=== PATIENT | female | born 1940 | race African-American/Black ===

== ENCOUNTER 2017-02-18 07:51 | Inpatient (IN) ==
[2017-02-18] MEDS ORDERED: HEPARIN 5,000 UNIT/1 ML VIAL ONE (08:27)
[2017-02-18] MEDS ORDERED: TISSUE ADHESIVE 1 EACH APPLICATOR TOP ONE (08:27)
--- NOTE | 2017-02-18 08:40 | History and Physical Update ---
History and Physical Update - History and Physical H&P was reviewed, the patient examined and there: are no changes in the patients condition since last H&P was completed.
[2017-02-18] MEDS ORDERED: ceFAZolin 1,000 MG VIAL ONE (08:48)
[2017-02-18] MEDS ORDERED: SODIUM CHLORIDE 0.9% 100 ML IV ONE (08:48)
[2017-02-18] MEDS ORDERED: LACTATED RINGERS 1,000 ML IV SCH (09:00)
[2017-02-18] MEDS ORDERED: GLYCOPYRROLATE 0.4 MG/2 ML VIAL ONE (09:15)
[2017-02-18] MEDS ORDERED: PROPOFOL 200 MG/20 ML VIAL IV ONE (09:15)
[2017-02-18] MEDS ORDERED: KETOROLAC 30 MG/1 ML VIAL ONE (09:15)
[2017-02-18] MEDS ORDERED: PROCAINAMIDE 1000 MG/2 ML ONE (09:15)
[2017-02-18] MEDS ORDERED: ETOMIDATE 20 MG/10 ML VIAL IV ONE (09:15)
[2017-02-18] MEDS ORDERED: HEPARIN 1,000 UNIT/1 ML VIAL ONE (09:15)
[2017-02-18] MEDS ORDERED: NEOSTIGMINE 10 MG/10 ML VIAL ONE (09:15)
[2017-02-18] MEDS ORDERED: DEXAMETHASONE 10 MG/1 ML VIAL ONE (09:15)
[2017-02-18] MEDS ORDERED: LIDOCAINE 1% 5 ML VIAL ONE (09:15)
[2017-02-18] MEDS ORDERED: PHENYLEPHRINE 1 MG/10 ML SYRINGE IV ONE (09:15)
[2017-02-18] MEDS ORDERED: ONDANSETRON 4 MG/2 ML VIAL ONE (09:15)
[2017-02-18] MEDS ORDERED: ROCURONIUM 100 MG/10 ML VIAL IV ONE (09:15)
[2017-02-18] MEDS ORDERED: PROMETHAZINE 25 MG/1 ML VIAL IM PRN (11:16)
[2017-02-18] MEDS ORDERED: GLUCAGON 1 MG VIAL IM PRN (11:16)
[2017-02-18] MEDS ORDERED: HYDROmorphone 2 MG/1 ML VIAL IV PRN ×2 (11:16)
[2017-02-18] MEDS ORDERED: DEXTROSE 50% 25 GM/50 ML VIAL IV PRN (11:16)
[2017-02-18] MEDS ORDERED: DOPamine 800 MG/250 ML PREMIX IV PRN (11:16)
[2017-02-18] MEDS ORDERED: NALOXONE 0.4 MG/ML VIAL IV PRN (11:16)
[2017-02-18] MEDS ORDERED: oxyCODONE/ACETAMINOPHEN 5-325 MG TABLET PO PRN (11:16)
[2017-02-18] MEDS ORDERED: ONDANSETRON 4 MG/2 ML VIAL IV PRN (11:16)
--- NOTE | 2017-02-18 11:16 | Operative Note ---
Date of procedure: 02/18/17 Procedure: Dr. Fowler operative report any Maria Guadalupe. 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 Lerma is a 77-year-old woman has been found to have a very high-grade ulcerated plaque involving the right internal carotid artery I have offered and recommended a right carotid endarterectomy I have explained the alternatives risks and complications which she understands and accepts Description of the procedure: After the induction of general endotracheal anesthesia the patient was placed in supine position neck modestly extended and turned to the left right neck is prepped with ChloraPrep and draped in usual fashion skin incision is made in a crease below the angle of the mandible and carried into the subplatysmal space dissection is carried out along the anterior border of the sternocleidomastoid muscle the internal jugular vein is identified the anterior facial vein was ligated hemoclipped and divided the common carotid artery is identified and controlled with a maxi vessel loop and the patient received 5000 units of intravenous heparin at this time. I then dissected along the common carotid artery past the diseased bifurcation separately controlling the internal and external carotid arteries with small vessel loops with adequate anticoagulation Vesseloops were brought up to control flow a longitudinal arteriotomy is made from the common carotid through the diseased bifurcation into the more normal distal internal carotid artery. I note that there is a calcified ulcerated highly stenotic plaque just distal to the origin of the internal carotid artery and does extend a bit upward but I am able to control above this plaque is removed I then placed an in-line Gonzalez- [place] shunt into the internal carotid artery which is backflush noting fairly low back pressure. He is then placed into the common carotid to reestablish flow. Standard endarterectomy was carried out removing the diseased intima media from the bifurcation this is done under loupe magnification and all loose flaps of medial or removed. The endarterectomized segment flush feathered out nicely on both the internal and external carotid arteries. The endarterectomized segment was flushed again with heparinized saline bovine pericardial patch is used to close the arteriotomy with a 5-0 Prolene suture shunt was removed and appropriate time backflushing internal and external carotid arteries and then flushing endarterectomized segment again with heparinized saline. Flow was initiated from the common carotid into the external and then restored into the internal carotid artery. Small bleeding site on the external carotid arteries controlled with a 5-0 Prolene suture. Flow is checked with the Doppler in all 3 vessels that is quite good heparin was partially reversed with 25 mg of protamine sulfate hemostasis was rechecked flow is checked again in the vessels that is good neck is irrigated with vancomycin is closed over quarter. Quarter inch Romi drain with a running 2- 0 Monocryl skin clips on the scan blood loss is estimated at 75 cc sponge needle and aspirate counts are correct and the patient taken to the recovery room in stable condition Surgeon / Physician: Dave Fowler Discharge Plan - Discharge Medications No Action Aspirin EC Tab 81 mg PO DAILY amLODIPine [Norvasc] 5 mg PO DAILY Rosuvastatin [Crestor] 20 mg PO DAILY Potassium Chloride 20 meq PO BID Cilostazol [Pletal] 50 mg PO BID Carvedilol [Coreg] 3.125 mg PO BID Valsartan/Hydrochlorothiazide [Valsartan-Hctz 160-12.5 mg Tab] 1 each PO DAILY - Follow Up or Referral - Forms/Instructions
[2017-02-18] MEDS ORDERED: ASPIRIN EC 81 MG TABLET PO SCH (11:30)
--- NOTE | 2017-02-18 11:38 | Anesthesia Post-Op ---
Anesthesia Post OP - Post Ansesthetic Evaluation Patient seen in post op: Yes Resp: within normal limits CV: within normal limits Mental: within normal limits Temp: within normal limits [id number]: within normal limits Nausea and Vomiting: within normal limits Pain: within normal limits
[2017-02-18] MEDS ORDERED: VANCOMYCIN 500 MG VIAL ONE (11:39)
[2017-02-18] MEDS ORDERED: PROTAMINE SULFATE 50 MG/5 ML VIAL IV ONE (11:41)
[2017-02-18] MEDS ORDERED: fentaNYL 100 MCG/2 ML VIAL ONE ×2 (11:41→13:33)
[2017-02-18] MEDS ORDERED: MIDAZOLAM 2 MG/2 ML VIAL ONE ×2 (11:41→13:34)
[2017-02-18] MEDS: LACTATED RINGERS 1,000 ML IV SCH ×2 (12:25→20:01)
[2017-02-18] MEDS: CLOPIDOGREL 75 MG TABLET PO SCH (12:45)
[2017-02-18] MEDS: oxyCODONE/ACETAMINOPHEN 5-325 MG TABLET PO PRN (13:03)
--- NOTE | 2017-02-18 13:18 | Event Note ---
Ms. Lerma is awake alert oriented neurologically intact good vital signs no sign of hematoma or swelling in the neck. Tongue midline good left hand managing member
[2017-02-18] MEDS ORDERED: KETAMINE 500 MG/10 ML VIAL ONE (13:33)
[2017-02-18] MEDS: ASPIRIN EC 81 MG TABLET PO SCH (13:45)
[2017-02-18] MEDS: CARVEDILOL 3.125 MG TABLET PO SCH (21:29)
[2017-02-18] MEDS: CILOSTAZOL 50 MG TABLET PO SCH (22:30)
[2017-02-18] MEDS: POTASSIUM CHLORIDE 20 MEQ PACK PO SCH (22:30)
[2017-02-19] MEDS: oxyCODONE/ACETAMINOPHEN 5-325 MG TABLET PO PRN ×2 (02:24→11:05)
--- NOTE | 2017-02-19 08:18 | Event Note ---
Mrs. Lerma is awake alert oriented doing well neurologically intact neck looks good drain is pulled vital signs are good. We will move her upstairs today but there is very good chance she can go home this afternoon
[2017-02-19] MEDS ORDERED: ROSUVASTATIN 20 MG TABLET PO SCH (09:00)
[2017-02-19] MEDS ORDERED: amLODIPine 5 MG TABLET PO SCH (09:00)
[2017-02-19] MEDS ORDERED: VALSARTAN/HCTZ 160-12.5 MG TABLET PO SCH (09:00)
[2017-02-19] MEDS: POTASSIUM CHLORIDE 20 MEQ PACK PO SCH (09:26)
[2017-02-19] MEDS: CILOSTAZOL 50 MG TABLET PO SCH (09:26)
[2017-02-19] MEDS: ASPIRIN EC 81 MG TABLET PO SCH (09:26)
[2017-02-19] MEDS: CLOPIDOGREL 75 MG TABLET PO SCH (09:28)
[2017-02-19] MEDS: CARVEDILOL 3.125 MG TABLET PO SCH (09:42)
--- NOTE | 2017-02-19 12:38 | Discharge Summary ---
Hospital Course - Hospital Course Hospital Course: Hanh Lerma was admitted with a high-grade stenosis of the right internal carotid artery and has undergone right carotid endarterectomy yesterday. She is awake alert fully oriented tolerating food and up in the room without difficulty. We do note her blood pressure in the right arm is running a bit low since transfer. My thoughts are that if she is able to ambulate in bell easily and is comfortable she can be discharged home this evening we may hold amlodipine and valsartan hydrochlorothiazide until we see that her blood pressure is staying at a more reasonable level. I discussed with her and her children her wound care and exercise expected recovery and plan for follow-up for staple removal next week they understand Specialty Discharge - Follow Up or Referrals Follow up with: Dave Fowler MD [Physician] - 02/24/17 1:15 pm (follow up appointment with Dr. Fowler TiffaniFebruary 24 at 1:15 PM) Discharge Plan - Discharge Data Disposition: Disch To Home/Self Care Condition at Discharge: Stable Discharge Diet: advance to your usual diet Activity: resume usual activities as tolerated Hygiene: may shower Weight Bearing at Discharge: full weight bearing Driving: not until seen by doctor Contact your physician if you experience:: fever over 101, Nausea/Vomiting - Discharge Medications New Clopidogrel [Plavix] 75 mg PO DAILY #100 tablet oxyCODONE/ACETAMINOPHEN 5-325 [Percocet 5-325] 1 tablet PO Q6H PRN #20 tablet PRN Reason: Pain Mild To Moderate (1-7) Continue Aspirin EC Tab 81 mg PO DAILY Rosuvastatin [Crestor] 20 mg PO DAILY Potassium Chloride 20 meq PO BID Cilostazol [Pletal] 50 mg PO BID Carvedilol [Coreg] 3.125 mg PO BID Discontinued amLODIPine [Norvasc] 5 mg PO DAILY Valsartan/Hydrochlorothiazide [Valsartan-Hctz 160-12.5 mg Tab] 1 each PO DAILY - Follow Up or Referral Follow Up: Dave Fowler MD [Physician] - 02/24/17 1:15 pm (follow up appointment with Dr. Malcolm Nixon, February 24 at 1:15 PM) - Forms/Instructions Exam - Constitutional Vitals: Period Temp Pulse Resp BP Sys/Quarles Pulse Ox Last 24 Hr 97.4 F-98.2 F 49-79 13-20 88-143/41-91 97-100 Discharge Results Procedures and tests throughout hospitalization: Pending Orders 02/18/17 12:30 MRSA Surveillence, Inf Control Routine Labs on day of discharge: Preliminary micro results at discharge 02/18/17 12:30 MRSA Surveillance Culture - Preliminary Nares - Both Nares (Mrsa screen) No MRSA isolated. DS: Provider Date of admission: 02/18/17 07:51 Primary care physician: . No PCP Attending physician on admission: Dave Fowler MD Consults: 02/18/17 12:52 Consult to Dietitian [CONS] Routine Reason for Dietitian: Dietary Consult Consult Comment: recent unintended weight loss 02/18/17 12:56 Consult to Pastoral Services [CONS] Routine Comment: Pastoral Screen: Request Tank Builder Supervisor Visit Pastoral Screen Source of Request: Patient Discharging clinician: Dave Fowler MD
[2017-02-19 14:57] VITALS: BP 105/55
== END 2017-02-19 14:45 | disposition home or self-care (01) | DRG 39 ==
LOC: N.SDSINP 07:51 → N.ICU 10:36 → N.3E 02-19 12:12
PROVIDERS: ADMIT Surgery; ATTEND Surgery

== ENCOUNTER 2018-05-23 11:22 | Inpatient (IN) ==
[2018-05-23] MEDS ORDERED: ASPIRIN 325 MG TABLET PO STA (11:57)
[2018-05-23 12:18] LABS: Basophils % 0.6 % (0.0-0.8); Eosinophils # 0.2 10*3/uL (0.0-0.87); Eosinophils % 2.9 % (0.00-10.9); Hematocrit 31.9 VOL% (35.7-47.0); Hemoglobin 10.6 GM/DL (12.0-16.0); Immature Granulocytes % 0.5 %; Immature Granulocytes Absolute 0.03 #; Lymphocytes # 1.6 10*3/uL (1.4-4.0); Lymphocytes % 24.6 % (21.3-54.2); Mean Corpuscular HGB Conc 33.2 GM/DL (32-36); Mean Corpuscular Hemoglobin 31 PG (27-34); Mean Corpuscular Volume 94.1 FL (87-102); Monocytes # 0.7 10*3/uL (0.11-0.8); Monocytes % 10.2 % (1.7-12.7); Neutrophils % 61.2 % (38.7-73.9); Platelet Count 351 T/CUMM (130-400); Red Blood Count 3.39 MC/CUMM (3.8-5.5); Red Cell Distribution Width 12.9 % (9.3-17.3); White Blood Count 6.6 T/CUMM (4-12)
[2018-05-23 12:27] LABS: INR 1.1; PT Patient Result 11.6 SECS; Partial Thromboplastin Time 28.2 SECS (0-40)
[2018-05-23 12:51] LABS: Albumin 3.3 G/DL (3.4-5.0); Bilirubin,Total 0.4 MG/DL (0.2-1.0); Calcium 9.7 MG/DL (8.5-10.1)
[2018-05-23 12:52] LABS: Potassium 2.8 MMOL/L (3.5-5.1); Troponin I Only < 0.015 NG/ML (0.00-0.045)
[2018-05-23] MEDS ORDERED: POTASSIUM BICARB EFFERVESCENT 25 MEQ TABLET PO ONE (13:14)
[2018-05-23] MEDS ORDERED: ONDANSETRON 4 MG/2 ML VIAL IV PRN (14:07)
[2018-05-23] MEDS ORDERED: MAGNESIUM SULF RIDER 2 GM in PREMIX 1 EACH IV PRN ×2 (14:07→14:17)
[2018-05-23] MEDS ORDERED: MAGNESIUM SULF RIDER 4 GM in PREMIX 1 EACH IV PRN ×2 (14:07→14:17)
[2018-05-23] MEDS ORDERED: traZODone 50 MG TABLET PO PRN (14:07)
[2018-05-23] MEDS ORDERED: diphenhydrAMINE CAP 25 MG CAPSULE PO PRN (14:07)
[2018-05-23] MEDS ORDERED: ACETAMINOPHEN 325 MG TABLET PO PRN (14:07)
[2018-05-23] MEDS ORDERED: POTASSIUM CHLORIDE RIDER 10 MEQ in PREMIX 1 EACH IV PRN (14:17)
[2018-05-23 14:40] LABS: Risk Ratio 2.49; Thyroid Stimulating Hormone 0.913 uIU/ml (0.358-3.74); VLDL CHOLESTEROL 19.6 MG/DL
[2018-05-23] MEDS: ENOXAPARIN 80 MG/0.8 ML SYRINGE SUBCUT SCH (15:00)
[2018-05-23] MEDS: SODIUM CHLORIDE 0.45% 1,000 ML IV SCH (16:28)
[2018-05-23] MEDS: POTASSIUM CHLORIDE 20 MEQ TABLET PO SCH ×2 (17:34→21:23)
[2018-05-23] MEDS: DOCUSATE SODIUM 100 MG CAPSULE PO SCH (21:23)
[2018-05-23] MEDS: ROSUVASTATIN 20 MG TABLET PO SCH (21:23)
[2018-05-23] MEDS: CARVEDILOL 3.125 MG TABLET PO SCH (21:23)
[2018-05-23] MEDS: CILOSTAZOL 50 MG TABLET PO SCH (21:23)
[2018-05-24] MEDS: POTASSIUM CHLORIDE 20 MEQ TABLET PO SCH ×2 (01:34→04:53)
[2018-05-24] MEDS: ENOXAPARIN 80 MG/0.8 ML SYRINGE SUBCUT SCH ×2 (01:55→15:02)
[2018-05-24 04:55] LABS: Basophils % 0.8 % (0.0-0.8); Eosinophils # 0.2 10*3/uL (0.0-0.87); Eosinophils % 3.7 % (0.00-10.9); Hematocrit 33.7 VOL% (35.7-47.0); Hemoglobin 10.8 GM/DL (12.0-16.0); Immature Granulocytes % 0.4 %; Immature Granulocytes Absolute 0.02 #; Lymphocytes # 1.5 10*3/uL (1.4-4.0); Lymphocytes % 29.6 % (21.3-54.2); Mean Corpuscular Hemoglobin 30 PG (27-34); Mean Corpuscular Volume 93.4 FL (87-102); Mean Platelet Volume 10.3 FL (9.6-12.0); Monocytes # 0.5 10*3/uL (0.11-0.8); Monocytes % 10.4 % (1.7-12.7); Neutrophils # 2.9 10*3/uL (1.4-7.4); Neutrophils % 55.1 % (38.7-73.9); Platelet Count 377 T/CUMM (130-400); Red Blood Count 3.61 MC/CUMM (3.8-5.5); White Blood Count 5.2 T/CUMM (4-12)
[2018-05-24 05:12] LABS: Albumin 3.1 G/DL (3.4-5.0); Bilirubin,Total 0.6 MG/DL (0.2-1.0); Calcium 8.9 MG/DL (8.5-10.1); Osmolality,Calculated 289.6 MOS/KG (273-304); Potassium 3.5 MMOL/L (3.5-5.1); Total Protein 7.2 G/DL (6.4-8.3)
[2018-05-24] MEDS ORDERED: VALSARTAN 80 MG TABLET PO SCH (09:00)
[2018-05-24] MEDS: amLODIPine 5 MG TABLET PO SCH (09:09)
[2018-05-24] MEDS: ASPIRIN EC 81 MG TABLET PO SCH (09:09)
[2018-05-24] MEDS: CARVEDILOL 3.125 MG TABLET PO SCH (09:10)
[2018-05-24] MEDS: CILOSTAZOL 50 MG TABLET PO SCH (09:10)
[2018-05-24] MEDS: DOCUSATE SODIUM 100 MG CAPSULE PO SCH ×2 (09:10→20:50)
[2018-05-24] MEDS: PANTOPRAZOLE 40 MG TABLET PO SCH (09:10)
[2018-05-24] MEDS: SODIUM CHLORIDE 0.45% 1,000 ML IV SCH (11:38)
[2018-05-24] MEDS: ROSUVASTATIN 20 MG TABLET PO SCH (20:50)
[2018-05-25 05:26] LABS: Basophils % 0.5 % (0.0-0.8); Eosinophils # 0.1 10*3/uL (0.0-0.87); Eosinophils % 3.3 % (0.00-10.9); Hemoglobin 9.9 GM/DL (12.0-16.0); Immature Granulocytes % 0.5 %; Immature Granulocytes Absolute 0.02 #; Lymphocytes # 1.1 10*3/uL (1.4-4.0); Lymphocytes % 25.1 % (21.3-54.2); Mean Corpuscular HGB Conc 31.9 GM/DL (32-36); Mean Corpuscular Hemoglobin 30 PG (27-34); Mean Corpuscular Volume 94.2 FL (87-102); Mean Platelet Volume 10.4 FL (9.6-12.0); Monocytes # 0.4 10*3/uL (0.11-0.8); Monocytes % 10.3 % (1.7-12.7); Neutrophils # 2.5 10*3/uL (1.4-7.4); Neutrophils % 60.3 % (38.7-73.9); Platelet Count 322 T/CUMM (130-400); Red Blood Count 3.29 MC/CUMM (3.8-5.5); White Blood Count 4.2 T/CUMM (4-12)
[2018-05-25 05:49] LABS: Albumin 2.6 G/DL (3.4-5.0); Bilirubin,Total 0.4 MG/DL (0.2-1.0); Potassium 3.3 MMOL/L (3.5-5.1); Total Protein 6.4 G/DL (6.4-8.3)
[2018-05-25] MEDS ORDERED: POTASSIUM CHLORIDE 20 MEQ TABLET PO PRN (06:22)
[2018-05-25] MEDS: POTASSIUM CHLORIDE 20 MEQ TABLET PO PRN ×3 (06:38→10:19)
[2018-05-25] MEDS: SODIUM CHLORIDE 0.45% 1,000 ML IV SCH (06:42)
[2018-05-25] MEDS: PANTOPRAZOLE 40 MG TABLET PO SCH (08:39)
[2018-05-25] MEDS: DOCUSATE SODIUM 100 MG CAPSULE PO SCH (08:39)
[2018-05-25] MEDS: amLODIPine 5 MG TABLET PO SCH (08:39)
[2018-05-25] MEDS: ASPIRIN EC 81 MG TABLET PO SCH (08:40)
[2018-05-25] MEDS ORDERED: OLMESARTAN 5 MG TABLET PO SCH (09:00)
[2018-05-25] MEDS ORDERED: ENOXAPARIN 40 MG/0.4 ML SYRINGE SUBCUT SCH (09:00)
[2018-05-25 12:09] VITALS: BP 129/63
== END 2018-05-25 14:15 | disposition home or self-care (01) | DRG 312 ==
LOC: N.ED 11:22 → N.EDINP 14:07 → SUATTDRO 14:07 → N.EDINP 15:40 → N.TELES 16:41
PROVIDERS: ADMIT Hospitalist; ATTEND Hospitalist

== ENCOUNTER 2020-08-10 17:04 | Inpatient (IN) ==
[2020-08-10] MEDS ORDERED: ACETAMINOPHEN 325 MG TABLET PO PRN (20:07)
[2020-08-10] MEDS ORDERED: ALUMINUM/MAGNES/SIMETH MAX STR 30 ML UDCUP PO PRN (20:07)
[2020-08-10] MEDS ORDERED: DEXTROSE 50% 25 GM/50 ML VIAL IV PRN (20:07)
[2020-08-10] MEDS ORDERED: ONDANSETRON 4 MG/2 ML VIAL IV PRN (20:07)
[2020-08-10] MEDS ORDERED: GLUCAGON 1 MG VIAL IM PRN (20:07)
[2020-08-10] MEDS ORDERED: KETOROLAC 15 MG/1 ML VIAL IV PRN (20:19)
[2020-08-10 21:00] LABS: Basophils % 0.2 % (0.0-0.8); Eosinophils % 0.1 % (0.00-10.9); Hematocrit 32.9 VOL% (35.7-47.0); Hemoglobin 10.9 GM/DL (12.0-16.0); Immature Granulocytes % 0.9 %; Immature Granulocytes Absolute 0.16 #; Lymphocytes # 1.5 10*3/uL (1.4-4.0); Lymphocytes % 8.2 % (21.3-54.2); Mean Corpuscular HGB Conc 33.1 GM/DL (32-36); Mean Corpuscular Volume 93.2 FL (87-102); Mean Platelet Volume 10.6 FL (9.6-12.0); Monocytes % 6.5 % (1.7-12.7); Neutrophils % 84.1 % (38.7-73.9); Platelet Count 351 T/CUMM (130-400); Red Blood Count 3.53 MC/CUMM (3.8-5.5); White Blood Count 18.6 T/CUMM (4-12)
[2020-08-10 21:32] LABS: Albumin 2.9 G/DL (3.4-5.0); Bilirubin,Total 0.6 MG/DL (0.2-1.0); Calcium 8.8 MG/DL (8.5-10.1); Thyroid Stimulating Hormone 0.604 uIU/ml (0.358-3.74); Total Protein 6.4 G/DL (6.4-8.3)
[2020-08-10] MEDS: ENOXAPARIN 40 MG/0.4 ML SYRINGE SUBCUT SCH (21:47)
[2020-08-10] MEDS: ROSUVASTATIN 20 MG TABLET PO SCH (21:48)
[2020-08-10] MEDS: cefTRIAXone 1,000 MG in SYRINGE 1 EACH IV SCH (21:48)
[2020-08-10] MEDS: metroNIDAZOLE INJ 500 MG in PREMIX 1 EACH IV SCH (21:48)
[2020-08-10] MEDS: DOCUSATE SODIUM 100 MG CAPSULE PO SCH (21:48)
[2020-08-10] MEDS: carvediloL 3.125 MG TABLET PO SCH (21:48)
[2020-08-10] MEDS: DEXTROSE 5% NACL 0.45% 1,000 ML IV SCH (21:49)
[2020-08-10] MEDS ORDERED: POTASSIUM CHLORIDE 20 MEQ TABLET PO ONE (22:23)
[2020-08-10] MEDS ORDERED: POTASSIUM CHLORIDE 20 MEQ TABLET PO PRN (22:23)
[2020-08-10] MEDS ORDERED: MAGNESIUM SULF RIDER 2 GM in PREMIX 1 EACH IV PRN (22:26)
[2020-08-10] MEDS ORDERED: MAGNESIUM SULF RIDER 4 GM in PREMIX 1 EACH IV PRN (22:26)
[2020-08-10 22:35] LABS: Cancer Antigen 19-9 < 1.2 U/ML (0-37); Carcinoembryonic Antigen 1.6 NG/ML (0.0-5.0)
[2020-08-11 00:22] LABS: Bacteria,Urine Occasional /HPF (Few); Bilirubin,Urine Negative (Negative); Blood, Urine Small mg/dL (Negative); Glucose,Urine (UA) Negative (Negative); Ketones,Urine Negative (Negative); Mucus,Urine Occasional /LPF (Occasional); Nitrite,Urine Negative (Negative); Protein,Urine Negative; RBC,Urine 9 /HPF (0-4); Squamous Epithelial Cell,Urine Occasional /HPF (0-10); Urine Appearance Slightly Hazy (Clear); Urine Color Yellow (Yellow); Urine Specific Gravity 1.023 (1.001-1.035); Urine Urobilinogen < 2.0 EU/DL (0.2-1.0); WBC,Urine 5 /HPF (0-6)
[2020-08-11] MEDS: metroNIDAZOLE INJ 500 MG in PREMIX 1 EACH IV SCH ×3 (03:33→22:44)
[2020-08-11 05:49] LABS: Basophils % 0.2 % (0.0-0.8); Eosinophils # 0.1 10*3/uL (0.0-0.87); Eosinophils % 0.3 % (0.00-10.9); Hematocrit 33.5 VOL% (35.7-47.0); Hemoglobin 10.8 GM/DL (12.0-16.0); Immature Granulocytes % 0.6 %; Lymphocytes # 1.7 10*3/uL (1.4-4.0); Lymphocytes % 9.8 % (21.3-54.2); Mean Corpuscular HGB Conc 32.2 GM/DL (32-36); Mean Corpuscular Volume 95.4 FL (87-102); Mean Platelet Volume 10.6 FL (9.6-12.0); Monocytes % 7.2 % (1.7-12.7); Neutrophils % 81.9 % (38.7-73.9); Platelet Count 327 T/CUMM (130-400); Red Blood Count 3.51 MC/CUMM (3.8-5.5); Red Cell Distribution Width 14.4 % (9.3-17.3); White Blood Count 17.7 T/CUMM (4-12)
[2020-08-11 06:16] LABS: Albumin 2.6 G/DL (3.4-5.0); Bilirubin,Total 1.2 MG/DL (0.2-1.0); Calcium 8.7 MG/DL (8.5-10.1); Osmolality,Calculated 288.8 MOS/KG (273-304); Risk Ratio 1.82; Total Protein 6.3 G/DL (6.4-8.3); VLDL CHOLESTEROL 7.8 MG/DL
[2020-08-11] MEDS: carvediloL 3.125 MG TABLET PO SCH ×2 (08:45→21:21)
[2020-08-11] MEDS: PANTOPRAZOLE 40 MG TABLET PO SCH (08:45)
[2020-08-11] MEDS: OLMESARTAN 5 MG TABLET PO SCH (08:45)
[2020-08-11] MEDS: DOCUSATE SODIUM 100 MG CAPSULE PO SCH (08:45)
[2020-08-11] MEDS: amLODIPine 5 MG TABLET PO SCH (08:45)
[2020-08-11] MEDS ORDERED: BISACODYL 5 MG TABLET PO SCH (09:00)
[2020-08-11] MEDS: DEXTROSE 5% NACL 0.45% 1,000 ML IV SCH (13:03)
[2020-08-11] MEDS: cefTRIAXone 1,000 MG in SYRINGE 1 EACH IV SCH (21:15)
[2020-08-11] MEDS: ROSUVASTATIN 20 MG TABLET PO SCH (21:21)
[2020-08-11] MEDS: ENOXAPARIN 40 MG/0.4 ML SYRINGE SUBCUT SCH (21:21)
[2020-08-12] MEDS: DEXTROSE 5% NACL 0.45% 1,000 ML IV SCH ×3 (02:45→16:44)
[2020-08-12] MEDS: metroNIDAZOLE INJ 500 MG in PREMIX 1 EACH IV SCH ×3 (04:29→21:55)
[2020-08-12 08:28] LABS: Calcium 8.6 MG/DL (8.5-10.1); Osmolality,Calculated 280.1 MOS/KG (273-304)
[2020-08-12] MEDS: OLMESARTAN 5 MG TABLET PO SCH (09:36)
[2020-08-12] MEDS: PANTOPRAZOLE 40 MG TABLET PO SCH (09:36)
[2020-08-12] MEDS: carvediloL 3.125 MG TABLET PO SCH ×2 (09:36→21:36)
[2020-08-12 09:37] LABS: Basophils % 0.4 % (0.0-0.8); Eosinophils # 0.2 10*3/uL (0.0-0.87); Eosinophils % 1.6 % (0.00-10.9); Hematocrit 32.8 VOL% (35.7-47.0); Hemoglobin 10.5 GM/DL (12.0-16.0); Immature Granulocytes % 0.6 %; Immature Granulocytes Absolute 0.06 #; Lymphocytes # 1.7 10*3/uL (1.4-4.0); Lymphocytes % 16.3 % (21.3-54.2); Mean Platelet Volume 10.4 FL (9.6-12.0); Neutrophils % 75.1 % (38.7-73.9); Platelet Count 294 T/CUMM (130-400); Red Blood Count 3.38 MC/CUMM (3.8-5.5); Red Cell Distribution Width 14.3 % (9.3-17.3); White Blood Count 10.1 T/CUMM (4-12)
[2020-08-12] MEDS: amLODIPine 5 MG TABLET PO SCH (14:40)
[2020-08-12] MEDS: ROSUVASTATIN 20 MG TABLET PO SCH (21:22)
[2020-08-12] MEDS: ENOXAPARIN 40 MG/0.4 ML SYRINGE SUBCUT SCH (21:22)
[2020-08-12] MEDS: cefTRIAXone 1,000 MG in SYRINGE 1 EACH IV SCH (21:22)
[2020-08-13] MEDS: DEXTROSE 5% NACL 0.45% 1,000 ML IV SCH ×2 (00:45→12:35)
[2020-08-13] MEDS: metroNIDAZOLE INJ 500 MG in PREMIX 1 EACH IV SCH (04:24)
[2020-08-13 06:06] LABS: Basophils % 0.3 % (0.0-0.8); Eosinophils # 0.1 10*3/uL (0.0-0.87); Eosinophils % 1.4 % (0.00-10.9); Hematocrit 36.5 VOL% (35.7-47.0); Hemoglobin 11.3 GM/DL (12.0-16.0); Immature Granulocytes % 0.3 %; Immature Granulocytes Absolute 0.02 #; Lymphocytes # 1.3 10*3/uL (1.4-4.0); Lymphocytes % 16.4 % (21.3-54.2); Mean Corpuscular Volume 97.3 FL (87-102); Mean Platelet Volume 11.6 FL (9.6-12.0); Monocytes % 6.1 % (1.7-12.7); Neutrophils % 75.5 % (38.7-73.9); Platelet Count 310 T/CUMM (130-400); Red Blood Count 3.75 MC/CUMM (3.8-5.5); Red Cell Distribution Width 13.9 % (9.3-17.3); White Blood Count 7.9 T/CUMM (4-12)
[2020-08-13 06:34] LABS: Calcium 8.7 MG/DL (8.5-10.1); Osmolality,Calculated 283.7 MOS/KG (273-304)
[2020-08-13 08:21] VITALS: BP 146/61
[2020-08-13] MEDS: OLMESARTAN 5 MG TABLET PO SCH (09:34)
[2020-08-13] MEDS: amLODIPine 5 MG TABLET PO SCH (09:35)
[2020-08-13] MEDS: PANTOPRAZOLE 40 MG TABLET PO SCH (09:35)
[2020-08-13] MEDS: carvediloL 3.125 MG TABLET PO SCH (09:35)
[2020-08-13] MEDS ORDERED: POTASSIUM CHLORIDE 20 MEQ TABLET PO ONE (11:30)
== END 2020-08-13 13:50 | disposition home or self-care (01) | DRG 437 ==
LOC: N.3E
PROVIDERS: ADMIT Internal Medicine; ATTEND Internal Medicine